=== PATIENT | male | born 2000 | race American Indian/Alaskan Native ===

== ENCOUNTER 2018-08-24 00:37 | Emergency (ER) | payer OTHER ==
[2018-08-24 00:42] VITALS: BP 122/68
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
[2018-08-24] MEDS ORDERED: ULTRAM PO ONE (03:28)
== END 2018-08-24 04:25 | disposition home or self-care (01) ==
LOC: ED 00:37
DX: S16.1XXA Strain of muscle, fascia and tendon at neck level, initial encounter (principal); V89.0XXA Person injured in unspecified motor-vehicle accident, nontraffic, initial encounter; Y93.89 Activity, other specified; Y92.410 Unspecified street and highway as the place of occurrence of the external cause; Y99.8 Other external cause status
CPT/HCPCS: 99282